=== PATIENT | female | born 2005 | race Two or more races ===

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

== ENCOUNTER 2023-07-20 08:26 | Emergency (ER) | payer OTHER, SELFPAY ==
[2023-07-20 08:29] VITALS: BP 107/59; PULSE 99; RESP 16; TEMP 36.2; O2SAT 100; BMI 20.2
[2023-07-20 08:52] LABS: IDNOW Serial# 08D9AD1C; Strep A Nucleic Acid Negative (Negative)
[2023-07-20 09:26] LABS: Influenza A PCR POSITIVE (Negative); Influenza B PCR NEGATIVE (Negative); Resp Syncy Virus RNA Qual PCR NEGATIVE (Negative); SARS COV2 PCR INHOUSE NEGATIVE (Negative)
--- NOTE | 2023-07-20 09:27 | ED_ITS ---
HPI - URI/Sore Throat General Chief Complaint: Upper Respiratory Symptoms Stated Complaint: Vomiting/Body aches/Sore throat Time Seen by Provider: 07/20/23 09:19 Source: patient and family Mode of arrival: ambulatory Limitations: no limitations History of Present Illness HPI Narrative: 18 year old female with pmhx significant for asthma presents to the ED today with body aches, neck pain, sore throat, cough and chills x1 day. Reports pain on swallowing. No difficulty swallowing. Cough is nonproductive of sputum. Did not receive her flu shot this year. No known sick contacts. Denies fever, chills, chest pain, difficulty breathing, wheezing, shortness of breath, rash, nausea or vomiting, abdominal pain, flank pain, dysuria, hematuria. Related Data Previous Rx's Medication Instructions Recorded benzonatate 100 mg capsule 100 mg PO BID PRN cough #14 caps 07/20/23 Allergies Allergy/AdvReac Type Severity Reaction Status Date / Time No Known Allergies Allergy Verified 07/20/23 08:28 Review of Systems Review of Systems: Constitutional: No fever, +chills, No fatigue, night sweats, weight changes ENT/Mouth: No ear pain, hearing loss, nasal congestion, sinus pain, rhinorrhea, sore throat Eyes: No eye pain, swelling, redness, vision changes, discharge Cardio: No chest pain, palpitations, KEITA, orthopnea, peripheral edema Pulm: No SOB, +cough, No sputum, wheezing, dyspnea, hemoptysis GI: No nausea, vomiting, hematemesis, abdominal pain, diarrhea, constipation, hematochezia, melena : No irregular bleeding, dysuria, frequency, urgency, hesitancy, hematuria, flank pain, urinary flow changes, urinary incontinence or retention MSK: No back pain, neck pain, joint pain, +myalgias Skin: No lesions, rashes Neuro: No weakness, numbness, paresthesias, LOC, dizziness, headache All other systems reviewed and are negative. [facility] Past Medical History Attestation statement: The following information was validated with the patient. Source: old records reviewed and nursing notes reviewed Social History Social History Smoked in Last 30 Days: No Advance Directives: No Physical Exam Vital Signs: Vital Signs: Last Vital Signs Temp 97.1 F 12/17/23 08:29 Pulse 99 07/20/23 08:29 Resp 15 07/20/23 09:44 BP 107/59 L 07/20/23 08:29 Pulse Ox 100 07/20/23 08:29 O2 Del Method Room Air 07/20/23 08:29 BMI result Body Mass Index 20.2 Vital signs stable, afebrile Const: General: cooperative, healthy appearing, comfortable, no acute distress, alert and awake Orientation/consciousness: patient oriented x3 Limitations: no limitations HEENT: Other: + posterior oropharynx erythematous, no edema. Uvula midline. No tonsillar exudates or peritonsillar masses. Controlling secretions and speaking complete sentences. Head: Yes normal to inspection Ears: hearing grossly normal bilaterally, external ears normal, TM's normal bilaterally, EAC's normal, mastoids normal and no periauricular adenopathy General nose exam: Normal external nose present, Normal nares present and No nasal discharge present Face and sinus: Yes normal facial exam and Yes sinuses nontender Eyes: General: appearance normal, both eyes and all related structures Periorbital: periorbital findings normal Conjunctivae: conjunctivae normal Sclerae: sclerae normal Pupils: Equal, round and reactive pupils present EOM: EOMs intact bilaterally Neck: Neck: Yes normal visual inspection, Yes full ROM, Yes no lymphadenopathy and Yes no meningeal signs Resp: Effort & Inspection: normal respiratory effort, able to speak in complete sentences, Actively coughing, no respiratory distress and no use of accessory muscles Auscultation: clear to auscultation bilaterally and no wheezes Cardio: Rate: regular rate Rhythm: regular rhythm Peripheral pulses: radial pulses present GI: Inspection: Yes normal to inspection Palpation (GI): Soft to palpation, nontender and no splenomegaly : General: Yes no CVA tenderness Back/Spine/Pelvis: Other: No midline spinous tenderness. No paraspinal muscle tenderness. No step off deformity. Back: no CVA tenderness Skin: General skin exam: no rashes or lesions noted Neuro: General: patient oriented x3, gait normal, moves all extremities and no meningeal signs Cranial nerves: Yes Equal, round and reactive pupils present Extrem: General: Yes normal to inspection and Yes full ROM Course Course Course Narrative: 929-- serology positive for influenza A. Informed patient of the positive serology results. Treatment is symptomatic. Will send Yazan Patton to patient's pharmacy for cough. Will order viscous lidocaine for throat pain. Patient has remained stable throughout ED visit today. Discussed strict return precautions. All questions answered at this time. Patient is agreeable with disposition and stable for discharge. Medications Administered Discontinued Medications Generic Name Dose Route Start Last Admin Trade Name Francisco PRN Reason Stop Dose Admin Lidocaine HCl 15 ml 07/20/23 09:33 07/20/23 09:39 Lidocaine Hcl Viscous 2 % 15 Ml Solution MUCOUS MEM 07/20/23 09:34 15 ml ONCE ONE Administration Medical Decision Making Medical Decision Making [facility] Narrative: 18 year old female with pmhx significant for asthma presents to the ED today with body aches, neck pain, sore throat, cough and chills x1 day. Vital signs stable, afebrile. Posterior oropharynx with erythema, no edema. No tonsillar exudates or peritonsillar masses. Uvula midline. Controlling secretions and speaking complete sentences. Bilateral EACs and TMs WNL. No lymphadenopathy. Abdomen soft, nontender, nondistended, no rebound tenderness or guarding. Normoactive bowel sounds x4. No midline spinous tenderness or step-off deformity. No paraspinal muscle tenderness. Clinical concern for viral syndrome, strep throat. Unlikely mono, [employer], retropharyngeal abscess, epiglottitis, cauda equina, epidural abscess, cord compression, otitis media or externa, mastoiditis, malignant otitis externa. Plan for serology, strep test and re-evaluation. Differential Diagnosis Differential Diagnoses: The differential diagnosis associated with the presentation includes As above Admission/Observation Not indicated Lab Data [facility] Lab Attestation statement: I reviewed the patient's lab results. As above Labs: Lab Results 07/20/23 Range/Units 08:38 Influenza Type A (PCR) POSITIVE A (Negative) Influenza Type B (PCR) NEGATIVE (Negative) RSV RNA Qual (PCR) NEGATIVE (Negative) SARS-CoV-2 RNA (RT-PCR) NEGATIVE (Negative) S. pyogenes GrpA RILEY Negative (Negative) External Record Review External record reviewed: Inpatient record Tests considered The following testing was considered but not selected: I considered ordering chest x-ray however lungs CTA bilaterally, not indicated. Prescription Management I considered prescription management with: Pain Medication Chronic Conditions Patient?s care impacted by: Other (Asthma) Critical Care Time Critical Care Time Critical Care Time: No Discharge Plan Discharge Clinical Impression: Influenza A Patient Disposition: Home, Self-Care Instructions: Influenza (ED), Flu Shot (Vaccine) for Adults (ED) Additional Instructions: You tested positive for the flu. The treatment for this is symptomatic. This does not warrant treatment with antibiotics. Your symptoms will likely last between 5-7 days. YOU ARE CONTAGIOUS. Tessalon Perles have been sent to your pharmacy. You may take these as needed for cough. Alter ibuprofen and Tylenol for fevers and body aches. You may also purchase [id number] Chloraseptic spray tp spray at the back of the throat for throat pain. Follow-up with your PCP. If symptoms persist or worsen please return to the emergency department. The case of an emergency call 911. Prescriptions: New benzonatate 100 mg capsule 100 mg PO BID PRN (Reason: cough) Qty: 14 0RF Interventions: ED Discharge Assessment Last Done: 07/20/23 09:45 Discharge Date/Time: 07/20/23 09:46
[2023-07-20] MEDS: Lidocaine HCl Viscous 2 % 15 ML SOLUTION MUCOUS MEM (09:39)
[2023-07-20 09:44] VITALS: RESP 15
== END 2023-07-20 09:46 | disposition home or self-care (01) ==
PROVIDERS: Emergency Provider Emergency Medicine
DX: J10.1 Influenza due to other identified influenza virus with other respiratory manifestations (principal); J02.9 Acute pharyngitis, unspecified; R05.9 Cough, unspecified; R68.83 Chills (without fever); J45.909 Unspecified asthma, uncomplicated; Z20.822 Contact with and (suspected) exposure to COVID-19
CPT/HCPCS: 0241U; 87651; 99284